=== PATIENT | male | born 1975 | race African-American/Black ===

== ENCOUNTER 2020-12-06 15:10 | Inpatient (IN) ==
[2020-12-06] MEDS ORDERED: OPTIRAY 350 500ml IV ONE (15:32)
--- NOTE | 2020-12-06 15:36 | CT Scan Report ---
HEAD CT NONCONTRAST CT DOSE: HISTORY: Stroke Like Symptoms TECHNIQUE: Multiaxial CT images of the head were performed without the use of intravenous contrast. A utomated exposure control was utilized for this study. A dose lowering technique was utilized adheri ng to the principles of ALARA. Comparison: None. Findings: The paranasal sinuses and mastoid air cells are clear. Paranasal sinuses and mastoid air ce lls are clear. The calvarium and skull base are intact. Small hypodense focus within the periphery of the left occipital lobe best seen on image 10. This likely represents a small focus of encephalomala aviva from old infarct or old trauma. There is no mass, hematoma, midline shift, or acute infarct. Impression: 1. No acute intracranial abnormality. 2. Small hypodense focus within the left occipital lobe posteriorly. This favors encephalomalacia in the setting of an old infarct or old trauma. ACT 112: Negative or not required by law. Electronically signed by: Harris Gray M.D. 12/06/2020 3:39 PM
[2020-12-06] MEDS ORDERED: LABETALOL HCL IV 5 MG/ML 20ML IV STA (15:39)
--- NOTE | 2020-12-06 15:46 | CT Scan Report ---
NECK CTA HISTORY: Stroke Like Symptoms TECHNIQUE: Multiaxial CT images of the neck were performed following the intravenous administration o f contrast to evaluate the major cervical vessels. Maximum intensity projection images were also obta ined. All measurements were calculated based on NASCET criteria. A dose lowering technique was utili zed adhering to the principles of ALARA. COMPARISON STUDY: None. FINDINGS: The aortic arch and proximal great vessels are widely patent. There is no significant sten osis, occlusion, or dissection identified within the bilateral common carotid, internal carotid, or v ertebral arteries. Partially visualized stent within the distal aortic arch/descending thoracic aorta . This is better appreciated on the same day chest CTA. There is a 2.4 cm cystic focus partially enca sing ADA 1. 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 No significant stenosis, occlusion, or dissection identified within the carotid or vertebral arter ies. 2. There is a 2.4 cm cystic focus partially encasing ADA 1 expansion of the mandible at this level. 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 ACT 112: Negative or not required by law. Electronically signed by: Harris Gray M.D. 12/06/2020 3:45 PM
[2020-12-06 15:48] LABS: Basophils # (auto) 0.01 K/uL (0-0.2); Basophils % (auto) 0.2 %; Eosinophils # (auto) 0.24 K/uL (0-0.5); Eosinophils % (auto) 4.2 %; Hematocrit (blood only) 46.3 % (42-52); Hemoglobin 15.5 g/dL (14.0-18.0); Immature Granulocytes # (auto) 0.02 K/uL (0.00-0.02); Immature Granulocytes % (auto) 0.3 %; Lymphocytes # (auto) 1.63 K/uL (1.2-3.4); Lymphocytes % (auto) 28.2 %; Mean Corpuscular Hemoglobin 28.9 pg (25-34); Mean Corpuscular Hgb Conc 33.5 g/dL (32-36); Mean Corpuscular Volume 86.4 fL (80-100); Mean Platelet Volume 11.2 fL (7.4-10.4); Monocytes # (auto) 0.43 K/uL (0.11-0.59); Monocytes % (auto) 7.4 %; Neutrophils # (auto) 3.45 K/uL (1.4-6.5); Neutrophils % (auto) 59.7 %; Platelet Count 168 K/uL (130-400); RDW Coefficient of Variation 15.5 % (11.5-14.5); RDW Standard Deviation 49.8 fL (36.4-46.3); Red Blood Count 5.36 M/uL (4.7-6.1); White Blood Count 5.78 K/uL (4.8-10.8)
--- NOTE | 2020-12-06 15:48 | Emergency Department Note ---
Impression & Plan Cerebrovascular accident ED Provider Note NAME: FLAQUITO CARSON AGE: 45 SEX: M : 1975 ARRIVES VIA: Ambulance INFORMANT: Patient, prehospital personnel, the patient's significant other ED PROVIDER(S): Clyde Macias DO CHIEF COMPLAINT: Strokelike symptoms HPI: The patient is a 45-year-old male who presented to the emergency department for an evaluation of strokelike symptoms. The patient had an acute onset of symptoms. The patient started to have ringing in his ears at approximately 12:30 PM today. His significant other states that around 1:00 she noticed that his speech was abnormal for the patient. Then at 2:35 PM today he started having an acute onset of left upper extremity and left lower extremity weakness. He also had left facial droop and slurred speech. The patient's significant other called 911. The patient arrived at the emergency department and was made a stroke alert prior to arrival. The patient is not from here and there was some difficulty registering the patient. Orders were put in as soon as the patient was registered. The patient does not have a history of stroke in the past. He states he never had similar symptoms to this in the past. He does of a history of an aortic aneurysm with dissection and surgical repair at [facility]. The patient's symptoms were moderate to severe. Upon my evaluation the patient still had moderate to severe symptoms. He denies having any headache. He denies having any recent trauma. He denies having any nausea or vomiting. ROS: See above HPI for pertinent positives & negatives. A total of 10 systems reviewed and were otherwise negative. PAST MEDICAL HISTORY: See Below PAST SURGICAL HISTORY: See Below FAMILY HISTORY: See Below SOCIAL HISTORY: See Below HOME MEDICATIONS: See Below ALLERGIES: See Below VITALS: See Below PHYSICAL EXAMINATION: GENERAL: The patient is awake and alert. The patient is somewhat anxious appearing. EYES: The conjunctivae are clear. The pupils are round and reactive. EARS, NOSE, MOUTH AND THROAT: The nose is without any evidence of any deformity. NECK: The neck is nontender and supple. RESPIRATORY: Normal respiratory effort is noted there is no evidence of wheezing rhonchi or rales CARDIOVASCULAR: Regular rate and rhythm noted there no murmurs rubs or gallops normal S1 normal S2. GASTROINTESTINAL: The abdomen is soft. Abdomen is nontender. PELVIS: The Pelvis is stable. No tenderness to palpation is noted. BACK: No midline tenderness or or step-off noted range of motion in flexion extension as well as rotation no signs of muscle spasm noted MUSCULOSKELETAL/EXTREMITIES: There is no evidence of gross deformity full range of motion is noted in the hips and shoulders. SKIN: There is no obvious evidence of any rash. There are no petechiae, pallor or cyanosis noted. NEUROLOGIC: Patient is awake alert and oriented x3. The patient has a left facial droop with forehead sparing. Speech is dysarthric but understandable. 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 There is a drift in the left upper extremity compared to the right. Patient is able to hold each leg off of the bed but he can only hold the left leg off the bed for less than 5 seconds. MEDICAL DECISION MAKING: The patient is a 45-year-old male who presented to the emergency department for an evaluation of strokelike symptoms. The patient arrived via ambulance and was made a stroke alert prior to arrival. The patient's timeline of symptoms was laid out by his significant other. He started having some vague symptoms earlier in the afternoon but then at one point started having very severe symptoms like dysarthria facial droop and left upper and lower extremity weakness. He was brought to the emergency department immediately. He went straight to CT. My initial evaluation was over in CT and the patient had very severe neurologic symptoms. After CT angiography the patient was brought back to the emergency department where his NIH score significantly improved. At that time he was an NIH score of 1. The patient was evaluated by the telestroke neurologist. No TPA was advised given the patient's NIH score. The patient was reevaluated multiple times. He was treated with IV medication for hypertension when we thought he could be a candidate for TPA. The patient started having symptoms again after having a bowel movement. Again the symptoms started to improve. At this time the patient does not wish to be treated with TPA although I did talk to the telestroke neurologist again and she felt if he was inside the 4 1/2-hour window we could consider TPA. Because of the CT of his chest we do not feel the risk is acceptable and may outweigh the benefits of TPA so no TPA will be given at this time. [facility] will evaluate the patient in the emergency department for further management and disposition. Triage Nursing notes reviewed. Prior medical records reviewed Vital Signs: reviewed and remarkable for elevated blood pressure. Differential diagnosis: Infection, dehydration, metabolic abnormality, hypo/hyperglycemia, electrolyte disturbance, anemia, hypoxia, cardiac sources, intracerebral event, toxicologic, neurologic, as well as other pathologies. ER treatment provided: See below Diagnostics interpreted by me: ECG: EKG was obtained in the emergency department. My interpretation is normal sinus rhythm at 83 bpm. There is no ectopy. Nonspecific lateral ST and T wave abnormalities were noted. No previous tracing was available. Cardiac Monitoring: An order was placed for continuous cardiac monitoring. The monitor shows a rate of 78 bpm with sinus rhythm. Laboratory studies: As stated above and show below. Imaging studies: See below Consultation(s): I discussed this case with Dr. Thrasher who is on-call for the stroke neurology group at [facility]. 1635: I was called to the bedside as the patient's symptoms started to return. Repeat vital signs and NIH score were obtained by nursing. NIH score is 3-4 at this time. 1650: I discussed this case again with Dr. Thrasher. She does recommend that consideration for TPA should be made within the 4 and half hour window however the patient has a CT of the chest that could be consistent with a distal dissection. 1655: I discussed this case with Dr. Yadav. We discussed the patient's CT findings of his chest dissection study. 1715: I discussed this case with Dr. Avila who is on-call for the [facility] hospitalist group. ED COURSE: Procedures: none Critical Care: I have personally spent greater than 45 minutes of critical care time in the direct management of this patient. This includes bedside care, interpretation of diagnostic studies, and testing, discussion with consultants, patient, and family members, and other required patient management activities. This 45 minutes is in excess of all separately billable procedures. 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 Social History Smoking Status: Former smoker Tobacco Type: Cigarettes Second Hand Exposure: No; Do You Dip or Chew Tobacco: No; Hx Alcohol Use: Yes Alcohol type: beer, wine and hard liquor Alcohol Intake Frequency: Monthly or Less Hx Substance Use: No Preferred Language: Nepali Communication Ability: Effective Active Directory Systems Administrator Required: No Beliefs That Will Affect Care: None Current Living Situation: Spouse Feels Safe at Home: Yes Safety Concerns: Feels Safe At This Time Assistive Devices: None Allergies Allergies Allergy/AdvReac Type Severity Reaction Status Date / Time No Known Allergies Allergy Verified 12/06/20 15:31 Home Meds Home Medications Medication Instructions Recorded Confirmed amlodipine 10 mg PO DAILY 12/06/20 12/06/20 aspirin 81 mg PO DAILY 12/06/20 12/06/20 lisinopril 20 mg PO DAILY 12/06/20 12/06/20 metoprolol tartrate 25 mg PO BID 12/06/20 12/06/20 Results & Data (ED) Vital Signs Vital Signs - 24 hr 12/06/20 15:19 12/06/20 15:32 12/06/20 15:47 Temperature 36.7 C Temperature Source Oral Pulse Rate 83 76 Pulse Rate [Apical] 67 Pulse Rate from SpO2 Sensor 75 Pulse Rhythm [Apical] Regular Pulse Strength [Apical] Normal Respiratory Rate 20 15 20 Respiratory Effort / Characteristics Non-Labored Spontaneous Respiratory Depth Normal Respiratory Pattern Regular Blood Pressure 174/89 H 136/75 Blood Pressure [Left Arm] 174/89 H Blood Pressure Mean 117 95 Blood Pressure Mean [Left Arm] 117 Blood Pressure Position [Left Arm] Lying Pulse Oximetry 97 96 98 Oxygen Delivery Method Room Air Sepsis Recent Fever Within 48 Hours No Sepsis New/Unexplained Change in Mental Status N/A Sepsis Action Taken by Nursing No Action Required 12/06/20 15:55 12/06/20 16:00 12/06/20 16:09 Temperature Temperature Source Pulse Rate 70 76 75 Pulse Rate [Apical] Pulse Rate from SpO2 Sensor 70 74 75 Pulse Rhythm [Apical] Pulse Strength [Apical] Respiratory Rate 18 22 24 Respiratory Effort / Characteristics Respiratory Depth Respiratory Pattern Blood Pressure 150/90 H Blood Pressure [Left Arm] Blood Pressure Mean 110 Blood Pressure Mean [Left Arm] Blood Pressure Position [Left Arm] Pulse Oximetry 98 98 98 Oxygen Delivery Method Sepsis Recent Fever Within 48 Hours Sepsis New/Unexplained Change in Mental Status Sepsis Action Taken by Nursing 12/06/20 16:15 12/06/20 16:30 12/06/20 16:36 Temperature Temperature Source Pulse Rate 76 84 77 Pulse Rate [Apical] Pulse Rate from SpO2 Sensor 74 86 77 Pulse Rhythm [Apical] Pulse Strength [Apical] Respiratory Rate 14 20 24 Respiratory Effort / Characteristics Respiratory Depth Respiratory Pattern Blood Pressure 189/95 H Blood Pressure [Left Arm] Blood Pressure Mean 126 Blood Pressure Mean [Left Arm] Blood Pressure Position [Left Arm] Pulse Oximetry 99 98 99 Oxygen Delivery Method Sepsis Recent Fever Within 48 Hours Sepsis New/Unexplained Change in Mental Status Sepsis Action Taken by Nursing 12/06/20 16:38 12/06/20 16:45 12/06/20 16:46 Temperature Temperature Source Pulse Rate 74 74 76 Pulse Rate [Apical] Pulse Rate from SpO2 Sensor 75 76 75 Pulse Rhythm [Apical] Pulse Strength [Apical] Respiratory Rate 18 21 16 Respiratory Effort / Characteristics Respiratory Depth Respiratory Pattern Blood Pressure 166/84 H 170/95 H Blood Pressure [Left Arm] Blood Pressure Mean 111 120 Blood Pressure Mean [Left Arm] Blood Pressure Position [Left Arm] Pulse Oximetry 98 97 99 Oxygen Delivery Method Sepsis Recent Fever Within 48 Hours Sepsis New/Unexplained Change in Mental Status Sepsis Action Taken by Nursing 12/06/20 17:00 12/06/20 17:04 12/06/20 17:15 Temperature Temperature Source Pulse Rate 72 73 80 Pulse Rate [Apical] Pulse Rate from SpO2 Sensor 70 74 80 Pulse Rhythm [Apical] Pulse Strength [Apical] Respiratory Rate 21 19 20 Respiratory Effort / Characteristics Respiratory Depth Respiratory Pattern Blood Pressure 177/109 H Blood Pressure [Left Arm] Blood Pressure Mean 131 Blood Pressure Mean [Left Arm] Blood Pressure Position [Left Arm] Pulse Oximetry 97 98 98 Oxygen Delivery Method Sepsis Recent Fever Within 48 Hours Sepsis New/Unexplained Change in Mental Status Sepsis Action Taken by Nursing 12/06/20 17:17 12/06/20 17:30 12/06/20 17:31 Temperature Temperature Source Pulse Rate 79 77 83 Pulse Rate [Apical] Pulse Rate from SpO2 Sensor 77 76 81 Pulse Rhythm [Apical] Pulse Strength [Apical] Respiratory Rate 20 21 20 Respiratory Effort / Characteristics Respiratory Depth Respiratory Pattern Blood Pressure 196/113 H 197/106 H Blood Pressure [Left Arm] Blood Pressure Mean 140 136 Blood Pressure Mean [Left Arm] Blood Pressure Position [Left Arm] Pulse Oximetry 98 99 98 Oxygen Delivery Method Sepsis Recent Fever Within 48 Hours Sepsis New/Unexplained Change in Mental Status Sepsis Action Taken by Nursing 12/06/20 17:45 Temperature Temperature Source Pulse Rate 73 Pulse Rate [Apical] Pulse Rate from SpO2 Sensor 73 Pulse Rhythm [Apical] Pulse Strength [Apical] Respiratory Rate 18 Respiratory Effort / Characteristics Respiratory Depth Respiratory Pattern Blood Pressure 170/73 H Blood Pressure [Left Arm] Blood Pressure Mean 105 Blood Pressure Mean [Left Arm] Blood Pressure Position [Left Arm] Pulse Oximetry 99 Oxygen Delivery Method Sepsis Recent Fever Within 48 Hours Sepsis New/Unexplained Change in Mental Status Sepsis Action Taken by Long Term Medications Current Medication List: was personally reviewed by me Laboratory Data Attestation: I reviewed the patient's lab results. Result diagrams: 12/07/20 04:33 12/07/20 04:33 Lab Results 12/06/20 12/06/20 12/06/20 Range/Units 15:39 15:39 15:39 WBC 5.78 (4.8-10.8) K/uL RBC 5.36 (4.7-6.1) M/uL Hgb 15.5 (14.0-18.0) g/dL Hct 46.3 (42-52) % MCV 86.4 (80-100) fL MCH 28.9 (25-34) pg MCHC 33.5 (32-36) g/dL RDW Std Deviation 49.8 H (36.4-46.3) fL RDW Coeff of Gale 15.5 H (11.5-14.5) % Plt Count 168 (130-400) K/uL MPV 11.2 H (7.4-10.4) fL Immature Gran % (Auto) 0.3 % Neut % (Auto) 59.7 % Lymph % (Auto) 28.2 % Tarrant % (Auto) 7.4 % Eos % (Auto) 4.2 % Baso % (Auto) 0.2 % Neut # (Auto) 3.45 (1.4-6.5) K/uL Lymph # (Auto) 1.63 (1.2-3.4) K/uL Tarrant # (Auto) 0.43 (0.11-0.59) K/uL Eos # (Auto) 0.24 (0-0.5) K/uL Baso # (Auto) 0.01 (0-0.2) K/uL Immature Gran # (Auto) 0.02 (0.00-0.02) K/uL PT 10.3 (9.0-12.0) Seconds INR 1.0 (0.9-1.1) APTT 26.1 (21.0-31.0) Seconds PTT Ratio 1.0 Sodium 137 (136-145) mmol/L Potassium 3.9 (3.5-5.1) mmol/L Chloride 105 (98-107) mmol/L Carbon Dioxide 28 (21-32) mmol/L Anion Gap 5.0 (3-11) BUN 16 (7-18) mg/dl Creatinine 1.26 (0.6-1.4) mg/dl Est Cr Clr Drug Dosing 109.3 ml/min Est GFR ( Amer) 78.8 ml/min Est GFR (Non-Af Amer) 68.0 ml/min BUN/Creatinine Ratio 12.6 (10-20) Glucose 136 H (70-99) mg/dl POC Glucose (70-99) mg/dl Calcium 8.8 (8.5-10.1) mg/dl Magnesium 2.0 (1.8-2.4) mg/dl Total Bilirubin 0.3 (0.2-1) mg/dl AST 13 L (15-37) U/L ALT 21 (12-78) U/L Alkaline Phosphatase 58 (45-117) U/L Troponin I < 0.015 (0-0.045) ng/ml Total Protein 7.0 (6.4-8.2) gm/dl Albumin 3.5 (3.4-5.0) gm/dl Globulin 3.5 (2.5-4.0) gm/dl Albumin/Globulin Ratio 1.0 (0.9-2) COVID-19 Eval Order SARS-CoV-2 (PCR) (Negative) 12/06/20 12/06/20 12/06/20 Range/Units 15:41 15:55 15:55 WBC (4.8-10.8) K/uL RBC (4.7-6.1) M/uL Hgb (14.0-18.0) g/dL Hct (42-52) % MCV (80-100) fL MCH (25-34) pg MCHC (32-36) g/dL RDW Std Deviation (36.4-46.3) fL RDW Coeff of Gale (11.5-14.5) % Plt Count (130-400) K/uL MPV (7.4-10.4) fL Immature Gran % (Auto) % Neut % (Auto) % Lymph % (Auto) % Tarrant % (Auto) % Eos % (Auto) % Baso % (Auto) % Neut # (Auto) (1.4-6.5) K/uL Lymph # (Auto) (1.2-3.4) K/uL Tarrant # (Auto) (0.11-0.59) K/uL Eos # (Auto) (0-0.5) K/uL Baso # (Auto) (0-0.2) K/uL Immature Gran # (Auto) (0.00-0.02) K/uL PT (9.0-12.0) Seconds INR (0.9-1.1) APTT (21.0-31.0) Seconds PTT Ratio Sodium (136-145) mmol/L Potassium (3.5-5.1) mmol/L Chloride (98-107) mmol/L Carbon Dioxide (21-32) mmol/L Anion Gap (3-11) BUN (7-18) mg/dl Creatinine (0.6-1.4) mg/dl Est Cr Clr Drug Dosing ml/min Est GFR ( Amer) ml/min Est GFR (Non-Af Amer) ml/min BUN/Creatinine Ratio (10-20) Glucose (70-99) mg/dl POC Glucose 122 H (70-99) mg/dl Calcium (8.5-10.1) mg/dl Magnesium (1.8-2.4) mg/dl Total Bilirubin (0.2-1) mg/dl AST (15-37) U/L ALT (12-78) U/L Alkaline Phosphatase (45-117) U/L Troponin I (0-0.045) ng/ml Total Protein (6.4-8.2) gm/dl Albumin (3.4-5.0) gm/dl Globulin (2.5-4.0) gm/dl Albumin/Globulin Ratio (0.9-2) COVID-19 Eval Order Covid19 at [facility] SARS-CoV-2 (PCR) NEGATIVE (Negative) Administered Medications Hydralazine HCl (Hydralazine Hcl 20 Mg/Ml Vial) 5 mg IV Q6H PRN PRN Reason: Hypertension Stop: 01/05/21 18:29 Last Admin: 12/07/20 00:48 Dose: 5 mg Documented by: [id number] Heparin Sodium/Dextrose (Heparin Sodium/Dextrose) 25,000 units in 500 mls @ 38 mls/hr IV .[id number] [facility]; Protocol Stop: 01/05/21 18:33 Last Titration: 12/07/20 07:10 Dose: 1,900 units/hr, 38 mls/hr Documented by: [id number] Cosigned by: [id number] Admin: 12/07/20 06:13 Dose: 1,900 units/hr, 38 mls/hr Documented by: [id number] Cosigned by: [id number] Titration: 12/07/20 06:13 Dose: 1,900 units/hr, 38 mls/hr Documented by: [id number] Cosigned by: [id number] Admin: 12/06/20 19:04 Dose: 1,900 units/hr, 38 mls/hr Documented by: [id number] Cosigned by: [id number] Potassium Chloride (K Maurice / Wtr) 10 meq in 100 mls @ 100 mls/hr IV Q1H [facility] Stop: 12/07/20 09:59 Last Admin: 12/07/20 06:02 Dose: 100 mls/hr Documented by: [id number] Magnesium Sulfate/Dextrose (Magnesium Sulfate / D5w) 1 gm in 100 mls @ 50 mls/hr IV Q2H [facility] Stop: 12/07/20 09:59 Last Admin: 12/07/20 06:02 Dose: 50 mls/hr Documented by: [id number] Ondansetron HCl (Ondansetron Inj 2 Mg/Ml 2 Ml Vial) 4 mg IV Q6H PRN PRN Reason: Nausea And Vomiting Stop: 01/06/21 05:04 Last Admin: 12/07/20 05:14 Dose: 4 mg Documented by: [id number] Discontinued Medications Gadobutrol (Gadobutrol 65ml Vial) 15 ml IV ONCE ONE Stop: 12/06/20 23:14 Last Admin: 12/06/20 23:14 Dose: 15 ml Documented by: [id number] Heparin Sodium/Dextrose (Heparin Iv Adult Wt-Based Standard *No* Bolus Protocol) 1 ea N/A NOW ; Protocol Stop: 12/06/20 18:31 Last Admin: 12/06/20 19:05 Dose: Not Given Documented by: [id number] Hydralazine HCl (Hydralazine Hcl 20 Mg/Ml Vial) 5 mg IV NOW ONE Stop: 12/07/20 05:01 Last Admin: 12/07/20 05:15 Dose: 5 mg Documented by: [id number] Lorazepam (Ativan) 0.25 mg in 0.5 mls @ 0.5 mls/min IV NOW STA Stop: 12/06/20 20:57 Last Admin: 12/06/20 22:24 Dose: 0.5 mls/min Documented by: [id number] Ioversol (Optiray 350 500ml) 112 ml IV ONCE ONE Stop: 12/06/20 15:33 Last Admin: 12/06/20 15:33 Dose: 112 ml Documented by: [id number] Labetalol HCl (Labetalol Hcl Iv 5 Mg/Ml 20ml) 10 mg IV NOW STA Stop: 12/06/20 15:40 Last Admin: 12/06/20 15:44 Dose: 10 mg Documented by: [id number] Cosigned by: [id number] Ondansetron HCl (Ondansetron Inj 2 Mg/Ml 2 Ml Vial) Confirm Administered Dose 4 mg .ROUTE .STK-MED ONE Stop: 12/07/20 04:54 Last Admin: 12/07/20 05:14 Dose: Not Given Documented by: [id number] Imaging Data Radiologist's Impression: Brain MRI 12/06/20 18:30 MRI OF THE BRAIN WITHOUT AND WITH IV CONTRAST CLINICAL HISTORY: Cerebrovascular accident. COMPARISON STUDY: Head CT and CTA of the head December 06, 2020. TECHNIQUE: Utilizing a 1.5 Connie magnet and dedicated coil, multiplanar, multiecho imaging of the brain was performed pre and postcontrast administration. IV administration of 15 mL [address] was uneventful. FINDINGS: No acute intracranial hemorrhage, midline shift or mass effect is present. Note is made of a 3.6 x 3.6 cm focus of restricted diffusion within the right frontotemporal region. A few punctate foci of acute infarction within the right parietal lobe are noted. Ventricular system is normal. Basilar cisterns are patent. There are no extra-axial collections. There is no intracranial mass or pathologic enhancement. The gradient echo sequence demonstrates multiple punctate foci of susceptibility artifact within the brain. A lesion associated with an unerupted right maxillary molar is better depicted on CT of December 06, 2020. IMPRESSION: 1. 3.6 cm right frontotemporal acute infarct. No acute hemorrhage. No significant mass effect. A few punctate acute infarcts within the right parietal lobe. 2. Multiple punctate foci of susceptibility artifact within the brain on gradient echo sequence. This suggests foci of hemosiderin deposition, a chronic finding. ACT 112: Negative or not required by law. Electronically signed by: Steven Abernathy M.D. 12/07/2020 7:58 AM Discharge Plan Visit Data Chief Complaint: Stroke Alert Stated Complaint: STROKE SX ED Provider: Clyde Macias Discharge Problem: Cerebrovascular accident Patient Disposition: Admitted As Inpatient Condition: Good Discharge Instructions Interventions: ED Discharge Assessment Last Done: 12/06/20 19:14 Discharge Problem: Cerebrovascular accident Qualifiers: CVA mechanism: embolism Precerebral and cerebral artery: middle cerebral artery Laterality of affected vessel: right Qualified Code(s): I63.411 - Cerebral infarction due to embolism of right middle cerebral artery
--- NOTE | 2020-12-06 15:53 | CT Scan Report ---
CTA ANGIOGRAPHY OF THE HEAD CLINICAL HISTORY: Stroke Like Symptoms COMPARISON STUDY: No previous studies for comparison. TECHNIQUE: Helical axial images of the head were obtained following uneventful intravenous administr ation of 112 cc of Optiray. Sagittal and coronal reconstructions were viewed as well as maximal inten sity projections on an independent 3-D workstation. Automated exposure control was utilized for the study. A dose lowering technique was utilized adhering to the principles of ALARA. FINDINGS: No acute intracranial hemorrhage, midline shift or mass effect is present. Ventricular syst em is normal. Basilar cisterns are patent. There are no extra-axial collections. Note is made of shor t segment occlusion versus severe stenosis of a sylvian branch within the right middle cerebral arter y shown on axial image 78 of 153. There is distal reconstitution. This is likely acute. No additional sites of vessel occlusion are noted. The posterior circulation is intact. There is no intracranial a neurysm. Note is made of a 2.4 cm lucent lesion associated with an unerupted right maxillary molar. IMPRESSION: 1. Short segment occlusion with distal reconstitution versus severe stenosis of a sylvian branch of t he right middle cerebral artery. This is likely acute and favors an embolus. Findings discussed with Dr. Macias at time of dictation. No additional sites of vessel occlusion. 2. 2.4 cm lucent lesion associated with an unerupted right maxillary molar. This is pathologically in determinate but favors a dentigerous cyst. ACT 112: Negative or not required by law. Electronically signed by: Steven Abernathy M.D. 12/06/2020 3:51 PM
[2020-12-06 15:59] LABS: Partial Thromboplastin Time 26.1 Seconds (21.0-31.0); Prothrombin Time 10.3 Seconds (9.0-12.0)
--- NOTE | 2020-12-06 16:08 | XRay Report ---
XR chest 1V portable CLINICAL HISTORY: Stroke Like Symptoms COMPARISON STUDY: No previous studies for comparison. FINDINGS: Lung volumes are normal. No pneumothorax or pleural effusion is noted. There is no consolid ation or evidence for pulmonary edema. Stent graft within the descending thoracic aorta is noted as w ell as median sternotomy wires. There is cardiomegaly. IMPRESSION: 1. No acute cardiopulmonary findings. 2. Postoperative findings within the thoracic aorta, better depicted on chest CT which will be report ed separately. Mild cardiomegaly. ACT 112: Negative or not required by law. Electronically signed by: Steven Abernathy M.D. 12/06/2020 4:07 PM
[2020-12-06 16:15] LABS: Alanine Aminotransferase 21 U/L (12-78); Albumin Level 3.5 gm/dl (3.4-5.0); Aspartate Aminotransferase 13 U/L (15-37); BUN Creatinine Ratio 12.6 (10-20); Blood Urea Nitrogen 16 mg/dl (7-18); Calcium 8.8 mg/dl (8.5-10.1); Carbon Dioxide 28 mmol/L (21-32); Chloride 105 mmol/L (98-107); Creatinine Clr Calc Pharmacy 109.3 ml/min; Est GFR (African American) 78.8 ml/min; Glucose 136 mg/dl (70-99); Potassium 3.9 mmol/L (3.5-5.1); Sodium 137 mmol/L (136-145)
[2020-12-06 16:19] LABS: Alkaline Phosphatase 58 U/L (45-117); Bilirubin,Total 0.3 mg/dl (0.2-1); Globulin 3.5 gm/dl (2.5-4.0); Troponin I < 0.015 ng/ml (0-0.045)
--- NOTE | 2020-12-06 16:28 | CT Scan Report ---
CT ANGIOGRAM OF THE CHEST COMBO CLINICAL HISTORY: History of dissection. Strokelike symptoms. COMPARISON STUDY: None TECHNIQUE: Before and following the IV administration of 112 cc of Optiray, CT angiogram of the chest was performed from the thoracic inlet to the upper abdomen utilizing the dissection protocol. Images are reviewed in the axial, sagittal, and coronal planes. 3-D MIPS images are created and assessed. I V contrast was administered without complication. A dose lowering technique was utilized adhering to the principles of ALARA. CT DOSE: 3640.95 mGy.cm FINDINGS: There is no axial, supra clavicle or internal mammary lymphadenopathy seen. Mediastinal lymph nodes are not enlarged. Evaluation is significantly limited due to motion, beam hardening artifact from patient's body habitu s and also insufficient opacification within aortic arch. Aortic root is dilated measuring 5.1 x 5.1 cm. Radiopaque densities within ascending aortic wall migh t represent postoperative changes or calcifications. Greater vessels are normally opacified however evaluation is limited due to beam hardening artifact. Endovascular graft is seen within descending thoracic aorta. Dissection flap is seen within distal, n onstented aspect of thoracic aorta (series 9 image 207). Evaluation of true and false lumen is extrem jackie difficult on this limited exam. Visualized portion of thyroid gland shows no evidence of focal lesions. Distal aspect of esophagus is patulous. Heart is normal in size without evidence of pericardial effusion. Tracheobronchial tree is patent. No infiltrates or consolidative lesions are seen. No pleural effusion demonstrated. No large pulmonary nodules are seen however evaluation of lung parenchyma is limited due to motion ar tifact. Limited evaluation of upper abdominal viscera shows no acute abnormalities . Evaluation of osseous structures shows multilevel bridging osteophytes of the thoracic spine. Sternotomy changes are seen. IMPRESSION: 1. Dissection within the distal nonstented aspect of descending thoracic aorta. Evaluation of the fa lse and true lumen is difficult on this limited study. Further evaluation by surgery and short-term f ollow-up is suggested. Findings were discussed with ordering physician at the time of this dictation. 2. Endovascular graft within proximal and midportion of thoracic aorta. Visualized great vessels perez ear patent. No definite evidence of endoleak is seen on this significantly limited exam. 3. Dilatation of aortic root, densities within wall of ascending aorta might represent postoperative changes of calcifications. 4. Significantly limited study due to motion artifact, beam hardening artifact from patient's body h abitus and insufficient opacification of aorta. ACT 112: Positive. There are findings on this exam that require communication between the performing entity and the patient following Patient Test Result Information Act ([place] Act 112) guidelines. The above report was generated using voice recognition software. It may contain grammatical, syntax o r spelling errors. Electronically signed by: Paola Tee DO 12/06/2020 4:27 PM
[2020-12-06] MEDS ORDERED: Heparin IV Adult Wt-Based Standard *NO* Bolus Protocol STA (18:30)
--- NOTE | 2020-12-06 18:44 | History & Physical Report ---
Date of Service December 06, 2020 Assessment & Plan (1) Cerebrovascular accident: Fox Collins is a 45 yo male with PMHx significant for HTN, obesity (BMI 48.8), and h/o thoracic aortic dissection s/p repair at [facility] in 2016, who presented to [facility] for acute-onset left-sided facial droop, slurred speech and left hand weakness for several hours. CVA involving Right MCA L facial droop/slurred speech/left hand weakness, CTA head showed short segment occlusion of sylvian branch of R MCA favoring embolus --> suspect embolic stroke - CT head showing small hypodense focus in left occipital lobe favoring encephalomalacia - possible old infarct due to embolic source of unknown origin at this time - CTA neck without ICA/vertebral artery pathology, ordered MRI brain w/wo contrast - ordered TTE - Neurology consulted - appreciate recs - tPA was not given, due to mild nature of neurologic symptoms and presence of aortic dissection - NIHSS scale Q2H monitoring - permissive hypertension with maximum SBP goal of 185 (see below) - Hydralazine 5mg IV Q6H PRN to maintain SBP <185 - spoke with Dr. Delaney (telestroke at [facility] [place] [place]) who recommends starting therapeutic heparin given concern for embolic source and further progression of current thromboembolism - started therapeutic heparin WITHOUT bolus (see below) - if patient develops worsening current symptoms, or develops new neurologic deficits, would get stat CT head w/o contrast and would consider transfer to tertiary center for possible thrombectomy, if imaging shows proximal blockage (per recommendations of Dr. Delaney) - A1c and lipid panel tomorrow AM Descending Thoracic Aortic Dissection - incidental finding on CTA chest imaging showing dissection in distal nonstented aspect of descending thoracic aorta, patient does not have chest/back pain or other symptoms that would indicate that this is an acute process - Vascular Surgery consulted (Dr. Yadav), agrees that this is likely chronic and would not consider acute intervention at this time, in light of above - may consider MRI with attention to thoracic aorta at a later time, to better characterize the dissection - SBP goal < 185, and heparin WITHOUT bolus, in light of dissection HTN - hold home anti-hypertensives for now FEN/GI: NPO for now, further changes per ICU DVT Prophylaxis: Heparin gtt Code Status: Full code Disposition: will admit to ICU (Dr. Giang aware of the patient) (2) Thoracic aortic dissection: (3) Hypertension: History of Present Illness Chief Complaint: stroke-like symptoms Primary Care Provider: NO PCP Fox Collins is a 45 yo male with PMHx significant for HTN, obesity (BMI 48.8), and h/o thoracic aortic dissection s/p repair at [facility] in 2015, who presented to [facility] for acute-onset left-sided facial droop, slurred speech and left hand weakness for several hours. Symptoms started at ~2pm this afternoon. Patient never experienced these symptoms before; no h/o stroke or TIAs. No recent changes in medications. Patient does have a 1/2ppd smoking history x30 years although he cut down to 1-2 cigarettes per day since dissection in 2016. No alcohol use or other drug use. In the ED, the patient's symptoms initially improved but then worsened again to what they were previously. Patient was hypertensive to 190s/100s in the ED but otherwise hemodynamically stable on RA. CBC/CMP/PT/PTT/INR/Troponin were all largely unremarkable. CTA head showed short segment occlusion vs severe stenosis of the sylvian branch of the right MCA, and CTA chest showed a dissection of the distal non-stented aspect of the descending thoracic aorta. Allergies Allergy/AdvReac Type Severity Reaction Status Date / Time No Known Allergies Allergy Verified 12/06/20 15:31 Home Medications Medication Instructions Recorded Confirmed Type amlodipine 10 mg PO DAILY 12/06/20 12/06/20 History aspirin 81 mg PO DAILY 12/06/20 12/06/20 History lisinopril 20 mg PO DAILY 12/06/20 12/06/20 History metoprolol tartrate 25 mg PO BID 12/06/20 12/06/20 History 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 Family History Mother , age 72 with a Covid-19 infection No problems noted. 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 Feels Safe at Home: Yes Safety Concerns: Feels Safe At This Time Assistive Devices: None Review of Systems Review of Systems: All systems reviewed & are unremarkable except as noted in HPI & below Physical Exam Constitutional: WD/WN, vitals as above appears anxious, left-sided facial droop apparent Eyes: PERRL, conjunctivae normal, anicteric sclerae Respiratory: normal respiratory effort, lungs clear to auscultation Cardiovascular: RRR, no murmur, no edema Gastrointestinal (Abdomen): normal bowel sounds, soft, nontender, no hepatosplenomegaly Musculoskeletal: 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, otherwise 5/5 strength in bilateral upper/lower extremities Skin: no rashes, warm and dry Neurologic: normal touch/pain/proprioception, moves all extremities and awake; not confused Speech / Cognition: + abnormal speech (slurred speech); normal cognition Cranial Nerves: PERRL, normal accommodation, EOM intact bilaterally, tongue midline, normal hearing, able to rotate head bilaterally, able to elevate shoulders bilaterally, no nystagmus and symmetric palate elevation; + abnormal facial strength Gait: no ataxic gait left facial droop without sparing of upper face Results & Data Results & Data ([facility]) Vital Signs (Past 12 Hours) Vital Signs Temp Pulse Pulse Resp BP BP Pulse Ox 12/06/20 17:45 73 18 170/73 H 99 12/06/20 17:31 83 20 197/106 H 98 12/06/20 17:30 77 21 99 12/06/20 17:17 79 20 196/113 H 98 12/06/20 17:15 80 20 98 12/06/20 17:04 73 19 177/109 H 98 12/06/20 17:00 72 21 97 12/06/20 16:46 76 16 170/95 H 99 12/06/20 16:45 74 21 97 12/06/20 16:38 74 18 166/84 H 98 12/06/20 16:36 77 24 189/95 H 99 12/06/20 16:30 84 20 98 12/06/20 16:15 76 14 99 12/06/20 16:09 75 24 150/90 H 98 12/06/20 16:00 76 22 98 12/06/20 15:55 70 18 98 12/06/20 15:47 76 20 136/75 98 12/06/20 15:32 36.7 C 67 15 174/89 H 96 12/06/20 15:19 83 20 174/89 H 97 Code Status & VTE Plan Code Status Full code VTE Prophylaxis Plan VTE Prophylaxis will be ordered: Yes Critical Care Time Critical Care Time: Yes Total Critical Care Time: 45 Supervising Physician Co-Signing Physician Notes Attending addendum: I have physically seen this patient, have supervised the medical residents activities, and agree with the H&P unless as otherwise noted. Assessment and Plan: CVA/right MCA- Embolus causing short segment occlusion of sylvian branch of right MCA CT head demonstrates left occipital lobe encephalomalacia CTA neck negative MRI brain ordered to assess for possible acute CVA Order complete echocardiogram Stroke without TPA protocol order set After discussion with [facility] stroke neurology, they recommended starting heparin drip, as patient is not a candidate for TPA due to extensive issues with dissecting aortic aneurysm Hydralazine 5 mg IV every 4 hours as needed systolic blood pressure greater than 190 Admit to intensive care unit for close monitoring Consult PT/OT/speech therapy/neurology/sheeter helper Descending thoracic aortic aneurysm- Vascular surgery contacted and will follow Remaining orders and notations as noted Resident Activity Tracking Resident Involvement: Resident Care Provided Care Provided: Adult Hospital Medicine (1) Cerebrovascular accident CVA mechanism: embolism Laterality of affected vessel: right Precerebral and cerebral artery: middle cerebral artery Qualified Code(s): I63.411 - Cerebral infarction due to embolism of right middle cerebral artery
[2020-12-06] MEDS: HEPARIN SODIUM/DEXTROSE 25,000 UNITS/500 ML BAG IV SCH (19:04)
[2020-12-06] MEDS ORDERED: ICU PROTOCOL FOR HYPERGLYCEMIA PRN (20:18)
--- NOTE | 2020-12-06 20:38 | Critical Care Consultation ---
Date of Consultation December 06, 2020 Assessment & Plan (1) Cerebrovascular accident: Impression: 45-year-old male with PMH significant for thoracic aortic dissection s/p repair at [facility] in 2016, HTN, BMI 48.8 who presented to the emergency department earlier this afternoon with acute onset of left-sided facial droop, slurred speech, and left upper extremity weakness. CTA head showed short segment occlusion of sylvian branch of R MCA favoring embolus. Code stroke initiated and patient did decline TPA due to history of aortic dissection and CTA chest imaging showing dissection in the distal nondistended aspect of the descending thoracic aorta. Admitted to ICU on heparin drip for further monitoring at this time and would consider transfer to tertiary center for possible thrombectomy if neurological status declines. Neuro - Acute CVACT head with small hypodense focus in the left occipital lobe favoring encephalomalacia or possible old infarct -CTA head and neckshort segment occlusion of sylvian branch of R MCA favoring embolus, no ICA/vertebral artery pathology -No TPA given due to mild nature of neurologic symptoms and presence of aortic dissection. -Per [facility] telemetry stroke neurology recommendations, patient was started on heparin drip without bolus given concern for embolic source and further progression of current thromboembolism -If patient's neurological status were to decline will obtain repeat CT imaging and consider transfer to tertiary center for possible thrombectomy -Follow-up MRI -Follow-up TTE, A1c, and lipid panel in a.m. -IV hydralazine for SBP less than 185 -Continue frequent neurological exams and NIHSS scale every 2 hours -Neurology consulted, follow-up recs -Speech, PT, OT Cardiac - Aortic dissectionpatient with history of thoracic aortic dissection repair. An incidental finding on CTA chest showed dissection of distal nondistended aspect of descending thoracic aorta. Patient without chest/back pain or other symptoms suggestive of acute process. Vascular surgery was consulted and per hospitalist documentation, is likely chronic without need for acute intervention at this time and could consider MRI with attention to thoracic aorta at a later time to better characterize the dissection. We will continue with hydralazine for SBP less than 185 and heparin without bolus in light of dissection. HTNholding home antihypertensives for now, continue hydralazine every 6 hours for SBP less than 185 Respiratory - Lungs clear to auscultation, no history of pulmonary disease. Currently maintaining oxygen saturation on room air without difficulty. Monitor on continuous pulse ox GI - N.p.o. pending swallow study. Will transition to heart healthy diet when appropriate RENAL/LYTES - Creatinine electrolytes within normal limits. Monitor routine BMPs and replete electrolytes as indicated - Strict I's and O's ENDO - No history of diabetes or thyroid disease ICU hyperglycemic protocol HEME - H&H within normal limits, monitor routine CBCs ID - No indication for infectious process at this time. Monitor fever curve LINES/IV ACCESS - Peripheral IVs DVT PROPHYLAXIS - SCDs, heparin drip I have personally spent 40 minutes of critical care time in the direct management of this patient. This is a life/limb threatening event. This includes time spent evaluating patient, direct bedside care, chart review, placing orders, interpretation of diagnostic studies, discussion with consultants, patient, and family members, as well as other required patient management activities. This time is exclusive of all separately billable procedures, and teaching time and separate from and in addition to any other critical care service time. Thank you for allowing us to participate in the care of this patient. Please refer to my attending physician's documentation for any further recommendations. (2) History of repair of dissecting aneurysm of ascending thoracic aorta: (3) Hypertension: (4) Thoracic aortic dissection: History of Present Illness Attending Physician: Jose Valdez MD History of Present Illness Mr. Collins is a 45-year-old male who presented to the emergency department as a stroke alert earlier this afternoon with new onset of strokelike symptoms that started around 2 PM this afternoon which included left-sided facial droop, slurred speech, and left hand weakness. He has a past medical history that is significant for a thoracic aortic dissection with repair at [facility] in 2016, hypertension, tobacco abuse, and obesity with a BMI of 48.8. He has no prior history of stroke or strokelike symptoms and reports taking his antihypertensives as prescribed. A CTA head showed short segment occlusion versus severe stenosis of the sylvian branch of the right MCA. A CTA chest was also performed which revealed incidental finding of dissection of the distal nondistended aspect of the descending thoracic aorta. Vascular surgery was consulted and did not feel this was an acute event, per hospitalist documentation. Patient's neurological symptoms initially showed improvement but then worsened again in the ER. tPA was considered but given patient's low NIH score and aortic dissection, it was declined. No thrombectomy was recommended at this time by [facility] telemetry stroke neurology. Plan to start patient on heparin drip without bolus and admit to ICU for close neurological monitoring and frequent NIHSS with plan to repeat CT imaging if patient's neurological status were to decline, and consider transfer to tertiary center for potential thrombectomy if needed. On arrival to the ICU the patient is alert and oriented and appears comfortable. He is hemodynamically stable and maintaining oxygen saturation on room air without respiratory distress. He has a very mild left facial droop which is somewhat noticeable when he smiles and very mild dysarthria which he states has somewhat improved from earlier. He does have significant left upper extremity weakness with drift on exam, although he is able to raise his arm off the bed. Patient denies recent illness, fevers, headache, dizziness, shortness of breath, cough or sore throat, neck chest or back pain, palpitations, nausea or vomiting, abdominal pain, or swelling of the hands and feet. Patient denies numbness or loss of sensation. Plan to continue with current medical management and monitor closely in ICU for now. Allergies Allergy/AdvReac Type Severity Reaction Status Date / Time No Known Allergies Allergy Verified 12/06/20 15:31 Home Medications Medication Instructions Recorded Confirmed Type amlodipine 10 mg PO DAILY 12/06/20 12/06/20 History aspirin 81 mg PO DAILY 12/06/20 12/06/20 History lisinopril 20 mg PO DAILY 12/06/20 12/06/20 History metoprolol tartrate 25 mg PO BID 12/06/20 12/06/20 History Patient History Medical History History of hypertension Surgical History History of repair of dissecting aneurysm of ascending thoracic aorta Social History Smoking Status: Former smoker Tobacco Type: Cigarettes Second Hand Exposure: No; Do You Dip or Chew Tobacco: No; Hx Alcohol Use: Yes Alcohol type: beer, wine and hard liquor Alcohol Intake Frequency: Monthly or Less Hx Substance Use: No Preferred Language: Turkmen Communication Ability: Effective [employer] Fab[employer] Required: No Beliefs That Will Affect Care: None Current Living Situation: Spouse Feels Safe at Home: Yes Safety Concerns: Feels Safe At This Time Assistive Devices: None Review of Systems Review of Systems: All systems reviewed & are unremarkable except as noted in HPI & below Physical Exam Constitutional: + obese, cooperative and comfortable Eyes: PERRL, conjunctivae normal, anicteric sclerae ENMT: external ear and nose normal, oropharynx normal Neck: trachea midline, no thyromegaly Respiratory: normal respiratory effort, lungs clear to auscultation symmetric chest movement; no stridor Auscultation: no crackles and no wheezes Cardiovascular: RRR, no murmur, no edema Heart Sounds: normal S1 and normal S2 Vessels: no JVD Extremities: normal capillary refill Gastrointestinal (Abdomen): normal bowel sounds, soft, nontender, no hepatosplenomegaly Skin: no rashes, warm and dry Neurologic: + focal motor deficit (Left upper extremity); not confused Speech / Cognition: + abnormal speech (Mild dysarthria); no expressive aphasia, no receptive aphasia and normal cognition Motor/Sensory: + pronator drift (Left upper extremity) Cranial Nerves: PERRL, normal accommodation, EOM intact bilaterally, normal hearing, able to rotate head bilaterally, able to elevate shoulders bilaterally and no nystagmus; + abnormal facial strength Coordination: + abnormal homwwp-ef-yhna test Psychiatric: A+Ox3, euthymic affect Results & Data Results & Data ([facility]) Vital Signs (Past 12 Hours) Vital Signs Temp Pulse Pulse Resp BP BP Pulse Ox 12/06/20 19:08 74 17 160/77 H 97 12/06/20 17:45 73 18 170/73 H 99 12/06/20 17:31 83 20 197/106 H 98 12/06/20 17:30 77 21 99 12/06/20 17:17 79 20 196/113 H 98 12/06/20 17:15 80 20 98 12/06/20 17:04 73 19 177/109 H 98 12/06/20 17:00 72 21 97 12/06/20 16:46 76 16 170/95 H 99 12/06/20 16:45 74 21 97 12/06/20 16:38 74 18 166/84 H 98 12/06/20 16:36 77 24 189/95 H 99 12/06/20 16:30 84 20 98 12/06/20 16:15 76 14 99 12/06/20 16:09 75 24 150/90 H 98 12/06/20 16:00 76 22 98 12/06/20 15:55 70 18 98 12/06/20 15:47 76 20 136/75 98 12/06/20 15:32 36.7 C 67 15 174/89 H 96 12/06/20 15:19 83 20 174/89 H 97 Coding Level of Care Code 06973 Inpt Consult Level 5 Diagnoses Cerebrovascular accident I63.411 CVA mechanism: embolism Laterality of affected vessel: right Precerebral and cerebral artery: middle cerebral artery History of repair of dissecting aneurysm of ascending thoracic aorta Z98.890; Z86.79 Hypertension I10 Thoracic aortic dissection I71.01 (1) Cerebrovascular accident CVA mechanism: embolism Laterality of affected vessel: right Precerebral and cerebral artery: middle cerebral artery Qualified Code(s): I63.411 - Cerebral infarction due to embolism of right middle cerebral artery
[2020-12-06] MEDS ORDERED: LORazepam 0.25 MG/0.5 ML VIAL IV STA (20:56)
[2020-12-06] MEDS ORDERED: GADOBUTROL 65ML VIAL IV ONE (23:13)
[2020-12-07] MEDS: hydrALAZINE HCL 20 MG/ML VIAL IV PRN ×2 (00:48→11:57)
[2020-12-07 01:21] LABS: Partial Thromboplastin Ratio 2.2
[2020-12-07 01:28] LABS: Partial Thromboplastin Time 56.7 Seconds (21.0-31.0)
[2020-12-07] MEDS ORDERED: ONDANSETRON INJ 2 MG/ML 2 ML VIAL ONE (04:53)
[2020-12-07 04:59] LABS: Hematocrit (blood only) 46.1 % (42-52); Hemoglobin 15.6 g/dL (14.0-18.0); Mean Corpuscular Hemoglobin 28.6 pg (25-34); Mean Corpuscular Hgb Conc 33.8 g/dL (32-36); Mean Corpuscular Volume 84.6 fL (80-100); Mean Platelet Volume 10.8 fL (7.4-10.4); Platelet Count 153 K/uL (130-400); RDW Coefficient of Variation 15.7 % (11.5-14.5); RDW Standard Deviation 48.5 fL (36.4-46.3); Red Blood Count 5.45 M/uL (4.7-6.1); White Blood Count 7.68 K/uL (4.8-10.8)
[2020-12-07] MEDS ORDERED: hydrALAZINE HCL 20 MG/ML VIAL IV ONE (05:00)
[2020-12-07] MEDS ORDERED: ONDANSETRON INJ 2 MG/ML 2 ML VIAL IV PRN (05:05)
[2020-12-07 05:41] LABS: BUN Creatinine Ratio 9.1 (10-20); Calcium 8.5 mg/dl (8.5-10.1); Creatinine Clr Calc Pharmacy 115.6 ml/min; Est GFR (African American) 89.8 ml/min; Est GFR (Non-African American) 77.5 ml/min; Magnesium 1.8 mg/dl (1.8-2.4); Phosphorus 3.2 mg/dl (2.5-4.9); Potassium 3.5 mmol/L (3.5-5.1)
[2020-12-07] MEDS: MAGNESIUM SULFATE / D5W 1 GM/100 ML BAG IV SCH ×2 (06:02→09:42)
[2020-12-07] MEDS: POTASSIUM CHLORIDE / WTR 10 MEQ/100 ML PLCT IV SCH ×4 (06:02→11:31)
[2020-12-07] MEDS: HEPARIN SODIUM/DEXTROSE 25,000 UNITS/500 ML BAG IV SCH ×2 (06:13→20:15)
--- NOTE | 2020-12-07 07:50 | Electrocardiogram Report ---
Test Reason : Blood Pressure : / mmHG Vent. Rate : 083 BPM Atrial Rate : 083 BPM P-R Int : 166 ms QRS Dur : 090 ms QT Int : 364 ms P-R-T Axes : 015 003 008 degrees QTc Int : 427 ms Normal sinus rhythm Low voltage QRS limb leads Diffuse Nonspecific T wave abnormality Abnormal ECG No previous ECGs available Confirmed by Meng Edmond ([id number]) on 12/07/2020 7:50:28 AM Referred By: REFERRED SELF Confirmed By:Meng Edmond
--- NOTE | 2020-12-07 07:59 | Magnetic Resonance Report ---
MRI OF THE BRAIN WITHOUT AND WITH IV CONTRAST CLINICAL HISTORY: Cerebrovascular accident. COMPARISON STUDY: Head CT and CTA of the head December 06, 2020. TECHNIQUE: Utilizing a 1.5 Connie magnet and dedicated coil, multiplanar, multiecho imaging of the br ain was performed pre and postcontrast administration. IV administration of 15 mL [address] was uneventful. FINDINGS: No acute intracranial hemorrhage, midline shift or mass effect is present. Note is made of a 3.6 x 3.6 cm focus of restricted diffusion within the right frontotemporal region. A few punctate f oci of acute infarction within the right parietal lobe are noted. Ventricular system is normal. Basil ar cisterns are patent. There are no extra-axial collections. There is no intracranial mass or pathol ogic enhancement. The gradient echo sequence demonstrates multiple punctate foci of susceptibility ar tifact within the brain. A lesion associated with an unerupted right maxillary molar is better depict ed on CT of December 06, 2020. IMPRESSION: 1. 3.6 cm right frontotemporal acute infarct. No acute hemorrhage. No significant mass effect. A few punctate acute infarcts within the right parietal lobe. 2. Multiple punctate foci of susceptibility artifact within the brain on gradient echo sequence. This suggests foci of hemosiderin deposition, a chronic finding. ACT 112: Negative or not required by law. Electronically signed by: Steven Abernathy M.D. 12/07/2020 7:58 AM
[2020-12-07 08:00] LABS: Estimated Average Glucose 137 mg/dl; Hemoglobin A1C 6.4 % (4.5-5.6)
[2020-12-07 08:07] LABS: Partial Thromboplastin Ratio 2.3; Partial Thromboplastin Time 61.6 Seconds (21.0-31.0)
--- NOTE | 2020-12-07 08:24 | Electrocardiogram Report ---
Test Reason : Blood Pressure : / mmHG Vent. Rate : 077 BPM Atrial Rate : 077 BPM P-R Int : 176 ms QRS Dur : 096 ms QT Int : 386 ms P-R-T Axes : 031 003 021 degrees QTc Int : 436 ms Normal sinus rhythm Moderate voltage criteria for LVH, may be normal variant Abnormal ECG When compared with ECG of 06-DEC-2020 15:32, Low voltage QRS no longer present Nonspecific T wave abnormality no longer present Confirmed by Meng Edmond ([id number]) on 12/07/2020 8:23:56 AM Referred By: REFERRED SELF Confirmed By:Meng Edmond
--- NOTE | 2020-12-07 08:50 | Critical Care Progress Note ---
Date of Service December 07, 2020 Assessment & Plan (1) Cerebrovascular accident: Cerebrovascular accident: Impression: 45-year-old male with PMH significant for thoracic aortic dissection s/p repair at [facility] in 2016, HTN, BMI 48.8 who presented to the emergency department earlier this afternoon with acute onset of left-sided facial droop, slurred speech, and left upper extremity weakness. CTA head showed short segment occlusion of sylvian branch of R MCA favoring embolus. Code stroke initiated and patient did decline TPA due to history of aortic dissection and CTA chest imaging showing dissection in the distal nondistended aspect of the descending thoracic aorta. Admitted to ICU on heparin drip for further monitoring at this time and would consider transfer to tertiary center for possible thrombectomy if neurological status declines. Neuro - Acute CVACT head with small hypodense focus in the left occipital lobe favoring encephalomalacia or possible old infarct -CTA head and neckshort segment occlusion of sylvian branch of R MCA favoring embolus, no ICA/vertebral artery pathology -No TPA given due to mild nature of neurologic symptoms and presence of aortic dissection. -Per [facility] telemetry stroke neurology recommendations, patient was started on heparin drip without bolus given concern for embolic source and further progression of current thromboembolism -If patient's neurological status were to decline will obtain repeat CT imaging and consider transfer to tertiary center for possible thrombectomy -MRI of the brain with and 3.6 cm right frontal temporal acute infarct. -Follow-up TTE, A1c, and lipid panel in a.m. -IV hydralazine for SBP less than 185 -Continue frequent neurological exams and NIHSS scale every 2 hours -Neurology consulted, follow-up recs -Speech, PT, OT Cardiac - Aortic dissectionpatient with history of thoracic aortic dissection repair. An incidental finding on CTA chest showed dissection of distal nondistended aspect of descending thoracic aorta. Patient without chest/back pain or other symptoms suggestive of acute process. Vascular surgery was consulted and per hospitalist documentation, is likely chronic without need for acute intervention at this time and could consider MRI with attention to thoracic aorta at a later time to better characterize the dissection. We will continue with hydralazine for SBP less than 185 and heparin without bolus in light of dissection. HTNholding home antihypertensives for now, continue hydralazine every 6 hours for SBP less than 185 Respiratory - Lungs clear to auscultation, no history of pulmonary disease. Currently maintaining oxygen saturation on room air without difficulty. Monitor on continuous pulse ox GI - N.p.o. pending swallow study. RENAL/LYTES - Creatinine electrolytes within normal limits. Monitor routine BMPs and replete electrolytes as indicated - Strict I's and O's ENDO - No history of diabetes or thyroid disease ICU hyperglycemic protocol HEME - H&H within normal limits, monitor routine CBCs ID - No indication for infectious process at this time. Monitor fever curve. LINES/IV ACCESS - Peripheral IVs DVT PROPHYLAXIS - SCDs, heparin drip Okay to transfer to floor with telemetry. Case was discussed with vascular surgery and neurology. 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 Denies any significant chest pain. He does have some nausea. He says he feels like he has a "hangover". He still has some weakness in his left hand. Otherwise, review of systems negative. Review of Systems Review of Systems: All systems reviewed & are unremarkable except as noted in HPI & below Physical Exam Constitutional: + obese; no acute distress ENMT: Left facial droop present. Neck: normal visual inspection Respiratory: normal respiratory effort, lungs clear to auscultation Cardiovascular: RRR, no murmur, no edema Gastrointestinal (Abdomen): normal bowel sounds, soft, nontender, no hepatosplenomegaly Musculoskeletal: no cyanosis or clubbing, extremities motor strength 5/5 Skin: no rashes, warm and dry Neurologic: Left facial droop. Left hand corporate attorney strength 4 out of 5. Right hand corporate attorney strength 5 out of 5. Psychiatric: A+Ox3, euthymic affect Results & Data Results & Data ([facility]) Vital Signs (Past 12 Hours) Vital Signs Temp Pulse Resp BP Pulse Ox 12/07/20 06:20 77 20 95 12/07/20 06:10 75 22 96 12/07/20 06:03 98.1 F 12/07/20 06:00 77 22 95 12/07/20 05:50 80 22 97 12/07/20 05:47 78 16 158/87 H 96 12/07/20 05:40 78 16 98 12/07/20 05:30 80 14 95 12/07/20 05:20 77 13 96 12/07/20 05:10 84 25 H 97 12/07/20 05:00 80 19 95 12/07/20 04:40 86 16 99 12/07/20 04:30 75 18 95 12/07/20 04:20 71 35 H 95 12/07/20 04:10 73 17 95 12/07/20 04:06 72 18 185/96 H 95 12/07/20 04:00 81 15 94 12/07/20 03:50 75 16 95 12/07/20 03:40 74 18 95 12/07/20 03:35 71 17 186/92 H 96 12/07/20 03:30 70 18 96 12/07/20 03:20 73 17 95 12/07/20 03:10 71 19 95 12/07/20 03:01 72 17 97 12/07/20 02:59 72 17 167/99 H 97 12/07/20 02:50 70 18 95 12/07/20 02:40 74 19 95 12/07/20 02:30 69 18 96 12/07/20 02:20 84 22 99 12/07/20 02:10 82 16 98 12/07/20 02:00 89 14 98 12/07/20 01:50 79 20 96 12/07/20 01:40 70 18 95 12/07/20 01:35 73 17 179/85 H 96 12/07/20 01:30 72 17 96 12/07/20 01:20 70 17 97 12/07/20 01:10 69 18 96 12/07/20 01:00 67 18 96 12/07/20 00:50 80 20 96 12/07/20 00:49 67 17 174/96 H 96 12/07/20 00:45 70 19 194/92 H 98 12/07/20 00:40 71 16 95 12/07/20 00:35 70 22 199/102 H 97 12/07/20 00:30 80 18 96 12/07/20 00:20 77 16 99 12/07/20 00:15 79 06 00:10 83 13 98 12/07/20 00:00 73 17 99 12/06/20 23:57 84 20 173/87 H 96 12/06/20 23:50 80 28 H 97 12/06/20 22:20 75 22 99 06 22:10 82 25 H 06/03/21 22:00 81 17 96 12/06/20 21:50 68 16 95 12/06/20 21:40 73 16 95 12/06/20 21:33 69 19 169/91 H 99 12/06/20 21:30 71 17 95 12/06/20 21:20 74 21 98 12/06/20 21:10 72 19 95 12/06/20 21:00 71 21 97 12/06/20 20:50 72 17 98 Vital signs, labs and imaging reviewed Coding Level of Care Code 07541 Subseq Hosp Care Lvl 3 Diagnoses Cerebrovascular accident I63.411 CVA mechanism: embolism Laterality of affected vessel: right Precerebral and cerebral artery: middle cerebral artery 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
--- NOTE | 2020-12-07 08:53 | Consultation ---
Date of Consultation December 07, 2020 Assessment & Plan (1) Thoracic aortic dissection: Pt's CTA chest was reviewed by Dr Yadav. Small dissection flap distal to previous repair is noted, but is likely chronic and pt is asymptomatic. Do not recommend vascular surgical intervention at this time. Recommend pt follow up with his voice pathologist/CT surgeon in [place] after discharge. Please send disk of his chest CTA along with him for follow up. Please call if needed. History of Present Illness Reason for Consultation: thoracic aortic dissection Attending Physician: Karine Kenyon MD History of Present Illness 45 yo m with hx of HTN, thoracic aneurysm/dissection repair in 2016 at [facility], seen in consultation for thoracic aortic dissection noted on CTA chest distal to his repair. Pt states he follows with his voice pathologist for regular eval of his repair and was not told of any problems with it at last visit. Pt is currently admitted for R hemispheric CVA with associated L facial droop, L arm weakness, and slurred speech. Pt admits nausea currently, believes this to be in part d/t having nothing in his stomach since arrival at [facility]. States his BP at home is usually in the 130's/80's on his current regimen. Was traveling locally from [place] area when sx began so came to [facility]. Admits fatigue and nausea. States facial droop, L arm weakness, and slurred speech are not significantly improved today. Denies JENNINGS, fever, chest pain, palpitations, SOB, LARA, abd pain, rest pain, claudication, ulcerations, other complaints. CTA demonstrates patent descending thoracic aneurysm repair with small dissection distal to repair. 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 Feels Safe at Home: Yes Assistive Devices: None Review of Systems Review of Systems: All systems reviewed & are unremarkable except as noted in HPI & below Physical Exam Constitutional: WD/WN, vitals as above + obese, cooperative and comfortable; not in distress ENMT: Ears: no hearing impairment Neck: trachea midline Respiratory: normal respiratory effort, lungs clear to auscultation Auscultation: + diminished lung sounds Cardiovascular: Rate/Rhythm: regular rate and regular rhythm Vessels: normal peripheral pulses, femoral pulses present, posterior tibial pulses present, dorsalis pedis pulses present, brachial pulses present and radial pulses present Extremities: normal capillary refill; no edema Gastrointestinal (Abdomen): normal bowel sounds, soft, nontender, no hepatosplenomegaly Musculoskeletal: Extremities: extremities normal to inspection and + abnormal strength (R side 5/5, L arm 4/5, LLE 5/5) Skin: no rashes, warm and dry Neurologic: moves all extremities and + focal motor deficit (L facial droop, slurred speech); not confused Psychiatric: A+Ox3, euthymic affect Results & Data ([facility]) Vital Signs (Past 12 Hours) Vital Signs Temp Pulse Resp BP Pulse Ox 12/07/20 06:20 77 20 95 12/07/20 06:10 75 22 96 12/07/20 06:03 36.7 C 12/07/20 06:00 77 22 95 12/07/20 05:50 80 22 97 12/07/20 05:47 78 16 158/87 H 96 12/07/20 05:40 78 16 98 06 05:30 80 14 95 06 05:20 77 13 96 12/07/20 05:10 84 25 H 97 12/07/20 05:00 80 19 95 12/07/20 04:40 86 16 99 06 04:30 75 18 95 12/07/20 04:20 71 35 H 95 12/07/20 04:10 73 17 95 12/07/20 04:06 72 18 185/96 H 95 12/07/20 04:00 81 15 94 12/07/20 03:50 75 16 95 12/07/20 03:40 74 18 95 12/07/20 03:35 71 17 186/92 H 96 12/07/20 03:30 70 18 96 12/07/20 03:20 73 17 95 12/07/20 03:10 71 19 95 12/07/20 03:01 72 17 97 12/07/20 02:59 72 17 167/99 H 97 12/07/20 02:50 70 18 95 12/07/20 02:40 74 19 95 12/07/20 02:30 69 18 96 12/07/20 02:20 84 22 99 12/07/20 02:10 82 16 98 12/07/20 02:00 89 14 98 12/07/20 01:50 79 20 96 12/07/20 01:40 70 18 95 12/07/20 01:35 73 17 179/85 H 96 12/07/20 01:30 72 17 96 12/07/20 01:20 70 17 97 12/07/20 01:10 69 18 96 12/07/20 01:00 67 18 96 12/07/20 00:50 80 20 96 12/07/20 00:49 67 17 174/96 H 96 12/07/20 00:45 70 19 194/92 H 98 12/07/20 00:40 71 16 95 12/07/20 00:35 70 22 199/102 H 97 12/07/20 00:30 80 18 96 12/07/20 00:20 77 16 99 06 00:15 79 0604 00:10 83 13 98 12/07/20 00:00 73 17 99 12/06/20 23:57 84 20 173/87 H 96 12/06/20 23:50 80 28 H 97 12/06/20 22:20 75 22 99 12/06/20 22:10 82 25 H 12/06/20 22:00 81 17 96 12/06/20 21:50 68 16 95 12/06/20 21:40 73 16 95 12/06/20 21:33 69 19 169/91 H 99 12/06/20 21:30 71 17 95 12/06/20 21:20 74 21 98 12/06/20 21:10 72 19 95 12/06/20 21:00 71 21 97 12/06/20 20:50 72 17 98
--- NOTE | 2020-12-07 09:35 | Neurology Consultation ---
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 Otherwise CT angiography of the head and neck were unremarkable (just the sylvian branch right middle cerebral artery stenosis ). I can't exclude embolus from the heart or proximal aorta. Echocardiogram is pending. Clinically he has dysarthria which is probably improving, left upper extremity weakness which is improving and a fairly dense left facial droop at the corner of the mouth with some decreased sensation in the lower half of the left face. He has multiple risk factors for stroke including hypertension which is not adequately controlled and cigarette smoking which is longstanding. His glucose was mildly elevated and his lipids were fairly good off medications. He has a history of descending aortic dissection repair in 2016. CT angiography of the chest revealed some changes distal to that repair but these are likely chronic. Recommendations: 1. Continue heparin for the next 24 hours. Awaiting echocardiogram results. 2. Otherwise convert anticoagulation to an oral medication such as apixaban 3. continue 81 mg aspirin tablet for now. 4. physical, occupational, and speech therapy consult. increase activity as able. 5. He is anxious to go home or be closer to home. We will see how he does over the next 24 hours and decide whether to trans 4 or discharge him to home. 6. Control blood pressure as you are doing, aiming for a mean arterial pressure is approximately 95-100. Overall, I spent a total of 60 minutes with this case including review of records, review of MRI and CT films, direct evaluation the patient bedside, and discussion of the case with the patient ( and his via FaceTime) at bedside , Dr. Giang, and Dr. Kenyon Including differential diagnosis and treatment options. History of Present Illness Reason for Consultation: Patient is a 45-year-old, who I was asked to see at the request of Dr. Vivas, for neurologic consultation regarding stroke Requesting Physician: Dr. Vivas Attending Physician: Karine Kenyon MD History of Present Illness patient has a history of descending thoracic aortic aneurysm repair at the [facility] in 2016. he was on 81 mg aspirin daily. He has a history of hypertension on amlodipine, lisinopril, and metoprolol. Yesterday he was driving and had the sudden onset ( around 1400) of some speech issues, drooling with left facial droop and left upper extremity weakness. He did not have left leg weakness or vision problems. He arrived to the emergency room December 06 at 1519 with a temperature 36.7, pulse of 83 and regular, respiratory rate 20, blood pressure 179/89, and O2 saturation 97%. He was noted to have left facial droop, left upper extremity weakness, and some dysarthria. CT scan of the head showed possible old left occipital stroke. CT angiography of the head and neck were remarkable only for some stenosis in the sylvian branch of the right middle cerebral artery that seemed acute/embolic. Chest x-ray was unremarkable. CBC and Chem profile were unremarkable except for glucose of 121. Hemoglobin A1c was 6.4, triglycerides 57, and total cholesterol 185. MRI of the brain showed a 3.6 cm right frontal temporal acute stroke with some punctate strokes in the posterior parietal head region. These seem embolic. I reviewed these films. He was put on a heparin drip and this morning feels a little bit better with his left hand and arm strength and his speech. He still has some nausea and a left facial droop. 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 Feels Safe at Home: Yes Safety Concerns: Feels Safe At This Time Assistive Devices: None Review of Systems Constitutional: no fever, no fatigue and no weakness Eyes: no diplopia, no eye pain and no worsening vision Ear, Nose, Mouth, Throat: no ear pain, no tinnitus, no hearing loss, no dizziness, no hoarseness and no dysphagia Respiratory: no cough and no dyspnea Cardiovascular: no chest pain, no palpitations and no lightheadedness Gastrointestinal: no abdominal pain, no nausea and no vomiting Genitourinary: no dysuria and no urinary incontinence Musculoskeletal: no back pain, no neck pain, no radicular pain, no joint pain and no myalgia Integumentary: no rash and no lesions Neurologic: + localized weakness and + abnormal speech; no gait abnormality, no generalized weakness, no tingling, no numbness, no tremor(s), no abnormal movements, no headache(s), no confusion and no memory loss Psychiatric: no depression, no irritability, no anxiety, no difficulty concentrating, no confusion and no hallucinations Endocrine: no fatigue and no flushing Hematologic / Lymphatic: no easy bleeding and no easy bruising Allergy / Immunological: no urticaria and no problem reported Exam (Neuro) Physical Exam: The patient is right-handed. The patient is awake, alert, and attentive. Speech has some mild dysarthria without aphasia. he can name objects, repeat phrases, and has normal spontaneous speech. Mentation and thought processes are intact, with orientation to person, place and time, and normal fund of knowledge. Attention and concentration are normal. Mood and affect are normal and appropriate. General appearance and grooming are normal. Short and long-term memory are intact. The discs are sharp with positive venous pulsations bilaterally. There are no exudates, hemorrhages, or blood vessel changes seen. Pupils are 4 mm bilaterally and reactive to light. Extraocular eye muscles are intact without nystagmus. Visual acuity and visual carlos seem normal grossly to confrontation. There are no deficits to sensation in the face in all 3 distributions of the fifth cranial nerve bilaterally. Corneal reflexes are positive bilaterally. Facial strength and symmetry was normal bilaterally. Hearing seems normal to whisper and finger rub bilaterally. Palate moves well without asymmetry. There is normal sternocleidomastoid and trapezius (shoulder shrug) strength bilaterally. Tongue is midline with good strength bilaterally. Neck has a full range of motion without discomfort. There are no cervical bruits bilaterally. There are no cranial or ocular bruits. Heart is without murmur. There is a regular rhythm and rate. Cervical, thoracic, and lumbar spine are nontender to palpation. Gait was not tested and stance sitting up in bed is reasonable With outstretched arms there is drift on the left. There are no resting, postural, or action tremors. There is no ataxia with finger to nose testing. The re is decreased facility in the left hand. No other abnormal involuntary movements are noted. Motor strength is 5/5 diffusely in the right upper extremity, including deltoids, biceps, triceps, brachioradialis, wrist flexors and extensors, intensive care ambulance paramedic, and intrinsic hand muscles. left upper extremity strength is 4 to 4+/ 5 proximally and distally except the hand which is clumsy and 4/5. Motor strength is 5/5 diffusely in the legs bilaterally including hip flexors, quadriceps, hamstrings, gastrocnemius, tibialis anterior, tibialis posterior, and Peroneii muscles. Toe extensors are normal and there is good bulk in the extensor digitorum brevis muscles bilaterally. The limbs have good tone without rigidity or spasticity. There is no atrophy noted in the muscles. Muscle bulk is normal, there is no tenderness to palpation, no myotonia to percussion, and no fasciculations seen. Sensory examination is intact to touch and pin throughout all 4 limbs diffusely. There was some nonspecific decreased sensation to touch in the left cheek and jaw line compared to the right. Reflexes are 2/4 in the biceps, triceps, brachioradialis, quadriceps, and Achilles tendons bilaterally. There is no clonus bilaterally. Toes are downgoing with plantar stimulation bilaterally. Peripheral pulses are present and of normal quality distally in all 4 limbs. There is no peripheral edema noted in the limbs. Results & Data ([facility]) Vital Signs (Past 12 Hours) Vital Signs Temp Pulse Resp BP Pulse Ox 12/07/20 06:20 77 20 95 12/07/20 06:10 75 22 96 12/07/20 06:03 36.7 C 12/07/20 06:00 77 22 95 12/07/20 05:50 80 22 97 12/07/20 05:47 78 16 158/87 H 96 12/07/20 05:40 78 16 98 12/07/20 05:30 80 14 95 12/07/20 05:20 77 13 96 12/07/20 05:10 84 25 H 97 12/07/20 05:00 80 19 95 12/07/20 04:40 86 16 99 12/07/20 04:30 75 18 95 12/07/20 04:20 71 35 H 95 12/07/20 04:10 73 17 95 12/07/20 04:06 72 18 185/96 H 95 12/07/20 04:00 81 15 94 12/07/20 03:50 75 16 95 12/07/20 03:40 74 18 95 12/07/20 03:35 71 17 186/92 H 96 12/07/20 03:30 70 18 96 12/07/20 03:20 73 17 95 12/07/20 03:10 71 19 95 12/07/20 03:01 72 17 97 12/07/20 02:59 72 17 167/99 H 97 12/07/20 02:50 70 18 95 12/07/20 02:40 74 19 95 12/07/20 02:30 69 18 96 12/07/20 02:20 84 22 99 12/07/20 02:10 82 16 98 12/07/20 02:00 89 14 98 12/07/20 01:50 79 20 96 12/07/20 01:40 70 18 95 12/07/20 01:35 73 17 179/85 H 96 12/07/20 01:30 72 17 96 12/07/20 01:20 70 17 97 12/07/20 01:10 69 18 96 12/07/20 01:00 67 18 96 12/07/20 00:50 80 20 96 12/07/20 00:49 67 17 174/96 H 96 06/04/21 00:45 70 19 194/92 H 98 12/07/20 00:40 71 16 95 12/07/20 00:35 70 22 199/102 H 97 12/07/20 00:30 80 18 96 12/07/20 00:20 77 16 99 12/07/20 00:15 79 12/07/20 00:10 83 13 98 12/07/20 00:00 73 17 99 12/06/20 23:57 84 20 173/87 H 96 12/06/20 23:50 80 28 H 97 12/06/20 22:20 75 22 99 12/06/20 22:10 82 25 H 12/06/20 22:00 81 17 96 12/06/20 21:50 68 16 95 12/06/20 21:40 73 16 95 12/06/20 21:33 69 19 169/91 H 99 12/06/20 21:30 71 17 95 12/06/20 21:20 74 21 98 PG Care Time/CCT Total # of Minutes Spent Total Time Spent with Patient: Total time spent is greater than 50% in coordination of care (as documented) at patient's floor/unit and/or counseling patient: Coding Level of Care Code 27911 Initial Inpt Care Lvl 3 Diagnoses Acute CVA (cerebrovascular accident) I63.9 Acute left hemiparesis G81.94 Dysarthria due to acute stroke I63.9; R47.1 Hypertension I10 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
[2020-12-07] MEDS: ASPIRIN 81 MG ECTAB PO SCH (10:36)
--- NOTE | 2020-12-07 10:46 | Hospitalist Progress Note ---
Date of Service December 07, 2020 Assessment & Plan (1) Cerebrovascular accident: Meg Collins is a 45 yo male with PMHx significant for HTN, obesity (BMI 48.8), and h/o thoracic aortic dissection s/p repair at [facility] in 2015, who presented to [facility] for acute-onset left-sided facial droop, slurred speech and left hand weakness for several hours. CVA involving Right MCA - CTA head showed short segment occlusion of sylvian branch of R MCA favoring embolus --> suspect embolic stroke - CT head showing small hypodense focus in left occipital lobe favoring encephalomalacia - possible old infarct due to embolic source of unknown origin at this time - CTA neck without ICA/vertebral artery pathology - MRI brain with 3.6cm right frontal temporal acute infarct - tPA was not given, due to mild nature of neurologic symptoms and presence of aortic dissection - TTE 12/07/20: LVEF 60-65%, severe concentric LVH; grade 1 diastolic dysfunction; aortic valve is trileaflet, opens well, mild aortic regurg; moderately dilated aortic root - NIHSS scale Q2H monitoring - Permissive hypertension with maximum SBP goal of 185 - Hydralazine 5mg IV Q6H PRN to maintain SBP <185 - Neurology consulted. Appreciate their assistance and recommendations as follows: - Continue heparin for the next 24 hours; then convert anticoagulation to po (e.g. 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 Yadav) consulted. Appreciate their assistance and recommendations as follows: - Agrees that this is likely chronic. Do not recommend vascular surgical intervention at this time. - Recommend patient f/u with his processing lead/CT surgeon in [place] after discharge (send disk of chest CTA w/ him for f/u). - May consider MRI with attention to thoracic aorta at a later time to better characterize the dissection - SBP goal < 185, and heparin WITHOUT bolus, in light of dissection HTN - Hold home anti-hypertensives for now FEN/GI: Heart healthy DVT Prophylaxis: Heparin gtt Code Status: Full code Disposition: will downgrade from ICU to PCU (2) Thoracic aortic dissection: (3) Hypertension: Admission and Anticipated Discharge Date Admission Date: December 06, 2020 Supervising Physician Co-Signing Physician Notes Resident Physician Supervision Note: I independently interviewed and examined the patient and verified the limon history and physical, reviewed labs and image studies and agree with resident Dr. Gutierres findings and care plan. Subjective Patient seen and evaluated at bedside this morning. States that he overall "feels like the flu," reporting generalized malaise. Had nausea this morning that has since resolved. His presenting symptoms of left upper extremity weakness and dysarthria have both significantly improved per patient. He continues to have some left sided facial droop. Patient denies chest pain or back pain at this time. Also denies abdominal pain, vomiting, headache. Patient re-evaluated at bedside this afternoon; also present in room. He states that he is feeling "much better" and "almost back to myself." Denies recurrent nausea. States that speech is improving. Still with LUE weakness but this is also improving. states that they are from [place] but are planning to stay with family outside of [place] for the next few weeks so that they have additional assistance and he can f/u with his doctors in [facility]. They are hopeful that they can be discharged soon. Patient currently denying any back pain, chest pain, headache, lightheaded, dizziness. Review of Systems Review of Systems: See HPI Physical Exam Physical Exam: GENERAL: No acute distress. Obese male that is well developed and well nourished. Vital signs reviewed as above. EYES: PERRLA. EOMI. Anicteric sclerae. HENT: Moist mucous membranes. RESPIRATORY: Clear to auscultation bilaterally. No wheezing, rales, or rhonchi. CARDIOVASCULAR: Regular rate and rhythm. No murmurs. ABDOMEN: Soft, non-tender and non-distended. Normal bowel sounds. EXTREMITIES: No edema. Non-tender. SKIN: Warm, dry. Midsternal thoracic scar that is well healed. NEUROLOGIC: Mild left facial droop most prominent at lateral lip; otherwise CN II-XII grossly intact. PSYCHIATRIC: Cooperative. Appropriate mood and affect. Results & Data Results & Data ([facility]) Vital Signs (Past 12 Hours) Vital Signs Temp Pulse Resp BP Pulse Ox 12/07/20 10:10 76 20 96 12/07/20 10:00 87 14 100 12/07/20 09:50 74 33 H 95 12/07/20 09:40 79 19 95 12/07/20 09:35 71 14 175/109 H 97 12/07/20 09:30 87 26 H 95 12/07/20 09:20 76 23 96 12/07/20 09:10 83 17 97 12/07/20 09:00 86 19 98 12/07/20 08:50 87 21 97 12/07/20 08:40 80 16 96 12/07/20 08:35 72 18 172/100 H 95 12/07/20 08:30 91 H 20 97 12/07/20 08:20 81 21 96 12/07/20 08:10 76 16 96 12/07/20 08:00 81 19 96 12/07/20 07:50 84 20 97 12/07/20 07:43 77 20 171/90 H 95 12/07/20 07:40 75 19 96 12/07/20 07:36 77 19 205/82 H 94 12/07/20 07:30 81 20 97 12/07/20 07:20 75 20 97 12/07/20 07:10 79 20 97 12/07/20 07:00 86 23 98 12/07/20 06:50 100 H 21 96 12/07/20 06:40 82 19 95 12/07/20 06:35 82 21 152/75 H 96 12/07/20 06:30 79 21 96 12/07/20 06:20 77 20 95 12/07/20 06:10 75 22 96 12/07/20 06:03 36.7 C 12/07/20 06:00 77 22 95 12/07/20 05:50 80 22 97 12/07/20 05:47 78 16 158/87 H 96 12/07/20 05:40 78 16 98 12/07/20 05:30 80 14 95 12/07/20 05:20 77 13 96 12/07/20 05:10 84 25 H 97 12/07/20 05:00 80 19 95 12/07/20 04:40 86 16 99 12/07/20 04:30 75 18 95 06/04/21 04:20 71 35 H 95 12/07/20 04:10 73 17 95 12/07/20 04:06 72 18 185/96 H 95 12/07/20 04:00 81 15 94 12/07/20 03:50 75 16 95 12/07/20 03:40 74 18 95 12/07/20 03:35 71 17 186/92 H 96 12/07/20 03:30 70 18 96 12/07/20 03:20 73 17 95 12/07/20 03:10 71 19 95 12/07/20 03:01 72 17 97 12/07/20 02:59 72 17 167/99 H 97 12/07/20 02:50 70 18 95 12/07/20 02:40 74 19 95 12/07/20 02:30 69 18 96 12/07/20 02:20 84 22 99 12/07/20 02:10 82 16 98 12/07/20 02:00 89 14 98 12/07/20 01:50 79 20 96 12/07/20 01:40 70 18 95 12/07/20 01:35 73 17 179/85 H 96 12/07/20 01:30 72 17 96 12/07/20 01:20 70 17 97 12/07/20 01:10 69 18 96 12/07/20 01:00 67 18 96 12/07/20 00:50 80 20 96 12/07/20 00:49 67 17 174/96 H 96 12/07/20 00:45 70 19 194/92 H 98 12/07/20 00:40 71 16 95 12/07/20 00:35 70 22 199/102 H 97 12/07/20 00:30 80 18 96 12/07/20 00:20 77 16 99 12/07/20 00:15 79 12/07/20 00:10 83 13 98 12/07/20 00:00 73 17 99 12/06/20 23:57 84 20 173/87 H 96 12/06/20 23:50 80 28 H 97 Resident Activity Tracking Resident Involvement: Resident Care Provided Care Provided: Adult Hospital Medicine (1) Cerebrovascular accident CVA mechanism: embolism Laterality of affected vessel: right Precerebral and cerebral artery: middle cerebral artery Qualified Code(s): I63.411 - Cerebral infarction due to embolism of right middle cerebral artery
--- NOTE | 2020-12-07 11:31 | XCELERA ---
[id number]
[2020-12-07] MEDS ORDERED: LABETALOL HCL IV 5 MG/ML 20ML IV STA (12:50)
--- NOTE | 2020-12-07 13:12 | Billing Data ---
Date of Service December 07, 2020 Coding Level of Care Code Critical Care 1st - mins
[2020-12-07] MEDS ORDERED: lisinopril 20 MG TAB PO STA (15:22)
[2020-12-07] MEDS ORDERED: amLODIPine BESYLATE 5 MG TAB PO STA (15:25)
[2020-12-07] MEDS: METOPROLOL TARTRATE 25 MG TAB PO SCH (20:17)
[2020-12-08 05:42] LABS: Hematocrit (blood only) 46.8 % (42-52); Hemoglobin 15.8 g/dL (14.0-18.0); Mean Corpuscular Hgb Conc 33.8 g/dL (32-36); Mean Corpuscular Volume 85.9 fL (80-100); Mean Platelet Volume 10.7 fL (7.4-10.4); Platelet Count 177 K/uL (130-400); RDW Standard Deviation 50.7 fL (36.4-46.3); Red Blood Count 5.45 M/uL (4.7-6.1); White Blood Count 8.77 K/uL (4.8-10.8)
[2020-12-08 06:02] LABS: Partial Thromboplastin Ratio 2.9
[2020-12-08 06:08] LABS: Partial Thromboplastin Time 75.4 Seconds (21.0-31.0)
[2020-12-08 06:24] LABS: BUN Creatinine Ratio 10.3 (10-20); Creatinine Clr Calc Pharmacy 118.9 ml/min; Est GFR (African American) 92.8 ml/min; Est GFR (Non-African American) 80.1 ml/min; Potassium 3.8 mmol/L (3.5-5.1)
[2020-12-08] MEDS: METOPROLOL TARTRATE 25 MG TAB PO SCH (07:57)
[2020-12-08] MEDS: ASPIRIN 81 MG ECTAB PO SCH (07:57)
[2020-12-08] MEDS ORDERED: amLODIPine BESYLATE 5 MG TAB PO SCH (09:00)
[2020-12-08] MEDS ORDERED: lisinopril 20 MG TAB PO SCH (09:00)
[2020-12-08] MEDS ORDERED: APIXABAN 5 MG TABLET PO SCH (10:00)
[2020-12-08 12:11] LABS: Partial Thromboplastin Ratio 1.3; Partial Thromboplastin Time 33.8 Seconds (21.0-31.0)
--- NOTE | 2020-12-08 12:29 | Discharge Summary ---
Date of Service December 08, 2020 Admission HPI Per Admitting Provider Fox Collins is a 45 yo male with PMHx significant for HTN, obesity (BMI 48.8), and h/o thoracic aortic dissection s/p repair at [facility] in 2016, who presented to [facility] for acute-onset left-sided facial droop, slurred speech and left hand weakness for several hours. Symptoms started at ~2pm this afternoon. Patient never experienced these symptoms before; no h/o stroke or TIAs. No recent changes in medications. Patient does have a 1/2ppd smoking history x30 years although he cut down to 1-2 cigarettes per day since dissection in 2016. No alcohol use or other drug use. In the ED, the patient's symptoms initially improved but then worsened again to what they were previously. Patient was hypertensive to 190s/100s in the ED but otherwise hemodynamically stable on RA. CBC/CMP/PT/PTT/INR/Troponin were all largely unremarkable. CTA head showed short segment occlusion vs severe stenosis of the sylvian branch of the right MCA, and CTA chest showed a dissection of the distal non-stented aspect of the descending thoracic aorta. Admission Exam Per Admitting Provider Constitutional: WD/WN, vitals as above appears anxious, left-sided facial droop apparent Eyes: PERRL, conjunctivae normal, anicteric sclerae Respiratory: normal respiratory effort, lungs clear to auscultation Cardiovascular: RRR, no murmur, no edema Gastrointestinal (Abdomen): normal bowel sounds, soft, nontender, no hepatosplenomegaly Musculoskeletal: mildly decreased kid club attendant strength of left hand, otherwise 5/5 strength in bilateral upper/lower extremities Skin: no rashes, warm and dry Neurologic: normal touch/pain/proprioception, moves all extremities and awake; not confused Speech / Cognition: + abnormal speech (slurred speech); normal cognition Cranial Nerves: PERRL, normal accommodation, EOM intact bilaterally, tongue midline, normal hearing, able to rotate head bilaterally, able to elevate shoulders bilaterally, no nystagmus and symmetric palate elevation; + abnormal facial strength Gait: no ataxic gait left facial droop without sparing of upper face Principal Diagnosis CVA Discharge Exam GENERAL: Obese male laying supine in bed who is in no acute distress. Vital signs reviewed as above. EYES: PERRLA. EOMI. Anicteric sclerae. HENT: Moist mucous membranes. Tongue midline. No oral lesions noted. RESPIRATORY: Clear to auscultation bilaterally. No wheezing, rales, or rhonchi. CARDIOVASCULAR: Regular rate and rhythm. No murmurs. ABDOMEN: Obese abdomen that is soft, non-tender and non-distended. Normal bowel sounds. EXTREMITIES: No edema. Non-tender. 5/5 strength in BUE and BLE. SKIN: Warm, dry. No rashes or lesions. Thoracic midsternal scare is well healed. NEUROLOGIC: No focal neurological deficits. CN II-XII grossly intact, but not individually tested. PSYCHIATRIC: Cooperative. Appropriate mood and affect. Discharge Data Allergies Allergy/AdvReac Type Severity Reaction Status Date / Time No Known Allergies Allergy Verified 12/06/20 15:31 Consultations 12/06/20 16:52 ED Decision to Admit Stat 12/06/20 20:18 Consult Gauge And Instrument Inspector Routine Consult Neurology Routine Consult Vascular Surgery Routine 12/07/20 10:57 Burn CD for patient Routine Ordered Studies 12/06/20 15:11 CT angio head w con Stat CT angio neck with con Stat CT head/brain wo con Stat 12/06/20 15:17 CT angio chest dissec wo/w con Stat 12/06/20 18:30 MR brain wo/w con Stat Hospital Course (1) Cerebrovascular accident: Meg Collins is a 45 yo male with PMHx significant for HTN, obesity (BMI 48.8), and h/o thoracic aortic dissection s/p repair at [facility] in 2015, who presented to [facility] for acute-onset left-sided facial droop, slurred speech and left hand weakness for several hours. CVA involving Right MCA - CTA head showed short segment occlusion of sylvian branch of R MCA favoring embolus --> suspect embolic stroke - CT head showing small hypodense focus in left occipital lobe favoring encephalomalacia - possible old infarct due to embolic source of unknown origin at this time - CTA neck without ICA/vertebral artery pathology - MRI brain with 3.6cm right frontal temporal acute infarct - tPA was not given, due to mild nature of neurologic symptoms and presence of aortic dissection - TTE 12/07/20: LVEF 60-65%, severe concentric LVH; grade 1 diastolic dysfunction; aortic valve is trileaflet, opens well, mild aortic regurg; moderately dilated aortic root - NIHSS scale Q2H monitoring - Permissive hypertension with maximum SBP goal of 185 - Hydralazine 5mg IV Q6H PRN to maintain SBP <185 - Neurology consulted. Appreciate their assistance and recommendations as follows: - Continue heparin for the next 24 hours; then convert anticoagulation to po (e.g. 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 Paper rx provided to patient for all home medications (lisinopril, metoprolol, amlodipine) and the apixaban on discharge. Patient to also continue ASA 81mg po daily. - Discussed importance of smoking cessation, medication compliance, and weight loss. - Recommend event monitor and sleep study as outpatient. - Patient advised to f/u with neurology as outpatient. - Also advised to f/u with his established PCP, wheelchair van operator first responder, and cardiothoracic surgeon in [place]. Descending Thoracic Aortic Dissection - incidental finding on CTA chest imaging showing dissection in distal nonstented aspect of descending thoracic aorta - Patient w/o CP or back pain at this time - Vascular Surgery (Dr. Yadav) consulted. Appreciate their assistance and recommendations as follows: - Agrees that this is likely chronic. Do not recommend vascular surgical intervention at this time. - Recommend patient f/u with his wheelchair van operator first responder/CT surgeon in [place] after discharge (send disk of chest CTA w/ him for f/u). - May consider MRI with attention to thoracic aorta at a later time to better characterize the dissection - SBP goal < 185, and heparin WITHOUT bolus, in light of dissection - Patient advised to f/u with wheelchair van operator first responder and cardiothoracic surgeon in [place] next week. HTN - Continue lisinopril, amiodarone, and metoprolol FEN/GI: Heart healthy Code Status: Full code Disposition: home w/ family support (2) Thoracic aortic dissection: (3) Hypertension: Total Time Total Time Spent Total Time Spent (In Minutes): See attending attestation Discharge Plan Discharge Items Patient Disposition: Home - Self-Care Reason For Visit: CVA Discharge Diagnosis: CVA Condition on Discharge: Good Activity: Resume your previous activity Non-emergency contact: Primary Care Provider Call non-emergency contact if: you have any medication questions Follow-up/Referrals: PCP,NO [Primary Care Provider] - Diet: Regular Addtl Attending Provider Instructions: Mr. Collins, It was our pleasure to care for you at [facility] from 12/06/2020 to 12/08/2020. You were admitted after presenting to the hospital with left upper extremity weakness, facial droop, and speech difficulty. You were found to have an acute stroke (what we call a cerebrovascular accident or CVA). You have done very well and your symptoms have significantly improved. You were evaluated by physical therapy, occupational therapy, and speech therapy -- there were no further needs identified at this time. For the stroke, you have been started on an anticoagulant medication (this prevents your blood from clotting). You received IV Heparin and are now being transitioned to a medication to take by mouth. It is very important that you take this new medication, Eliquis (apixaban) as prescribed -- take Eliquis 5mg by mouth twice a day. You should also take Aspirin 81mg by mouth once a day. As we discussed, there are multiple factors that increase your risk for stroke -- smoking, obesity, and uncontrolled hypertension. We highly recommend that you stop smoking. Improving your diet and increasing physical activity (even by walking) can help with weight loss. And please take all home blood pressure medications as prescribed. We also discussed additional studies that we recommend you discuss with your primary care physician -- specifically an event monitor (to monitor your heart rate/rhythm for a longer period of time) and a sleep study (to evaluate for sleep apnea). You were also found to have a thoracic aortic dissection, that appears to be chronic. You have been given a CD with images of your studies here. It is very important that you follow up with your cardiothoracic surgeon in [place]. Please follow up with your primary care doctor (or family doctor) early next week (week of 12/10/20 to 12/14/20). You should also follow up with your wheelchair van operator first responder and cardiothoracic surgeon. Radha lawton establish care with a neurologist in your area as well, you can ask your primary care doctor for a referral or recommendation if needed. Please call 911 or go to the nearest emergency department if you have any recurrent or concerning symptoms including facial droop, increased weakness in one part of your body, difficulty with speech, chest pain, shortness of breath, leg pain, or leg swelling. Pending Studies at Discharge: No Stand-Alone Forms: My [facility] [employer], Smoking Cessation Medications and DC Order Prescriptions: New Eliquis 5 mg Tablet 5 mg PO BID 30 Days Qty: 60 RF: 0 lisinopril 20 mg Tablet 20 mg PO DAILY 30 Days Qty: 30 RF: 1 amlodipine 10 mg Tablet 10 mg PO DAILY 30 Days Qty: 30 RF: 1 metoprolol tartrate 25 mg Tablet 25 mg PO BID 30 Days Qty: 60 RF: 1 Continued aspirin 81 mg Tablet,Delayed Release (Dr/Ec) 81 mg PO DAILY RF: 0 Discharge Orders: Discharge Order (Routine); Ordered 12/08/20 Ordered By: Kelsi Jacome/Other Patient Handouts: Prediabetes, Using Blood Thinners (Anticoagulants), 5 Steps for Eating Healthier, Taking a Beta-Tyrell, Taking Amlodipine, Discharge Instructions for Stroke, Angiotensin Converting Enzyme (Blood), A1C Admission Data Admit Date/Time: 12/06/20 18:41 Attending Provider: Karine Kenyon Admit Provider: Logan Vivas Primary Care Provider: PCP,NO Other Providers: Jose Valdez ; Darnell Giang ; Jo Esposito ; Enrike Yadav Other Interventions: Discharge Summary Assessment (RN) Last Done: 12/08/20 14:06 Supervising Physician Co-Signing Physician Notes Resident Physician Supervision Note: I independently interviewed and examined the patient and verified the limon history and physical, reviewed labs and image studies and agree with resident Dr. Gutierres findings and care plan. Resident Activity Tracking Resident Involvement: Resident Care Provided Care Provided: Adult Hospital Medicine
[2020-12-08] MEDS ORDERED: STROKE PATIENT DISCHARGE PRN (14:01)
--- NOTE | 2020-12-08 14:32 | Pharmacy Report ---
Pharmacist Stroke Counseling - Date of Service December 08, 2020 - Scope: Pharmacy has been consulted to provide medication discharge counseling for this patient admitted with ischemic stroke as per the Pharmacist Discharge Counseling for Stroke Patients Protocol. - Medications on Discharge: Home Medications Medication Instructions Recorded Confirmed aspirin 81 mg PO DAILY 12/06/20 12/06/20 New Rx's Medication Instructions Recorded amlodipine 10 mg PO DAILY 30 Days #30 tab 12/08/20 apixaban [Eliquis] 5 mg PO BID 30 Days #60 tab 12/08/20 lisinopril 20 mg PO DAILY 30 Days #30 tab 12/08/20 metoprolol tartrate 25 mg PO BID 30 Days #60 tab 12/08/20 - Action: The above medications, specifically ones for stroke treatment/prophylaxis, have been reviewed in detail with the patient and/or patient phone representative(s) prior to discharge. This includes indication, common adverse reactions, drug interactions, and medication administration. Medication counseling has been employed using the teach-back method to ensure understanding. - Outcome: The patient and/or patient phone representative(s) have demonstrated understanding of the medications. Thank you for allowing pharmacy to be involved in the care of this patient. Please call [phone] with any additional questions
== END 2020-12-08 15:00 | disposition home or self-care (01) | DRG 64 ==
LOC: ED 15:10 → SUATTDRO 18:41 → 1E 18:41 → 2S 12-07 17:06